=== PATIENT | female | born 1965 | race Caucasian/White ===

== ENCOUNTER 2024-12-11 09:44 | Emergency (ER) | payer MEDICAID ==
[~2024-12-11] VITALS: Ht 175.3 cm; Wt 113.6 kg
[2024-12-11 09:47] VITALS: BP 124/70; PULSE 79; RESP 18; O2SAT 96
--- NOTE | 2024-12-11 10:44 | Physician Documentation ---
HPI ~ General Chief Complaint: Medication Request Stated Complaint: SEE CHIEF COMPLAINT Time Seen by MD: 10:21 History of Present Illness HPI Comments A Depakote refill because they are unable to get a hold of a physician at the current facility. no current reported seizure activity Medication Reconciliation Scheduled Divalproex Sodium (Depakote), 1 TAB PO Q12H Review of Systems All Other Systems at this time: Reviewed and Negative ROS As stated above in the HPI, otherwise all systems are reviewed and negative. Physical Exam Physical Exam Vital Signs: Temperature: 99.1, Source: Oral, Heart Rate: 79, Respiratory Rate: 18, BP: 124/70, Pulse Oximetry: 96, Weight: 113.640 Physical Exam General: Alert, no apparent distress. Respiratory: Lungs clear, no respiratory distress. Cardiovascular: Regular rate and rhythm, no murmurs. Neurologic: Oriented x4. Psychiatric: Normal mood and affect. Skin: Normal color, warm and dry. No edema, no ecchymosis. Progress Results/Orders Results/Orders Vital Signs 12/11/24 12/11/24 09:47 10:57 Temp 99.1 99.1 Pulse 79 Resp 18 B/P (MAP) 124/70 Pulse Ox 96 Medical Decision Making Findings Medicationsrefill as requested Differential Dx:Considerations: Include: Adverse circumstances, Economic, Psychosocial, Medical services unavail., Medication refill, Medication non- compliance, Other Departure Disposition: 01 HOME / SELF CARE / HOMELESS Impression: Primary Impression: General medical exam Discharge Instructions: Medicine Refill at the Emergency Department Referrals: NO PRIMARY CARE PROVIDER (PCP) Prescriptions Divalproex Sodium (Depakote) 250 Mg Tablet. 1 TAB PO Q12H for 30 Days, #60 TAB 0 Refills Prov: MATT MARTE NP 12/11/24 Signature Scribe Signature: t Attestation: The note accurately reflects work and decisions made by me.Matt Marte - ANA 12/11/24 14:41 MATT MARTE NP December 11, 2024 10:44
[2024-12-11] MEDS ORDERED: DIVA250T4 PO (10:46)
[2024-12-11 10:57] VITALS: TEMP 99.1
== END 2024-12-11 11:10 | disposition home or self-care (01) ==
LOC: ER 09:45
DX: R56.9 Unspecified convulsions (principal)
CPT/HCPCS: 99281

== ENCOUNTER 2024-12-16 14:04 | Emergency (ER) | payer MEDICAID ==
[~2024-12-16] VITALS: Ht 177.8 cm; Wt 45.5 kg
[~2024-12-16 14:04] MED LIST: DIVA250T4 PO
[2024-12-16 14:07] VITALS: BP 136/70; PULSE 79; RESP 16; O2SAT 96
--- NOTE | 2024-12-16 14:52 | Physician Documentation ---
HPI ~ General Chief Complaint: Medication Refill Stated Complaint: MED REQUEST Time Seen by MD: 14:39 OK to notify your PCP?: Yes Source: patient Mode of Arrival: POV Exam Limitations: no limitations History of Present Illness HPI Comments 59-year-old female who is here to get prescriptions refilled. Patient lives at a [facility] and states that the provider who feels the prescriptions for that facility recently quit and I currently do not have a provider that can refill the medications. Medication Reconciliation Allergies: Coded Allergies: erythromycin base (Unverified Allergy, Unknown, 12/16/24) quetiapine (Unverified Allergy, Unknown, 12/16/24) Scheduled Acetazolamide (Acetazolamide), 1 TAB PO Q12H Amiloride HCl (Amiloride HCl), 1 TAB PO BID Divalproex Sodium (Depakote), 1 TAB PO Q12H Hydroxyzine Hcl (Atarax), 1 TAB PO qhs Levothyroxine Sodium (Levothyroxine), 1 CAP PO DAILY [place] Carbonate ([place] Carbonate), 1 CAP PO qhs Olanzapine (Olanzapine), 1 TAB PO BID Oxybutynin Chloride (Oxybutynin Chloride), 1 TAB PO Q12H Risperidone (Risperdal), 1 TAB PO HS Tamsulosin Hcl* (Flomax*), 1 CAP PO DAILY Past Medical History Past Medical History: No Pertinent History Review of Systems All Other Systems at this time: Reviewed and Negative Physical Exam Physical Exam Vital Signs: Temperature: 98.0, Source: Temporal, Heart Rate: 79, Respiratory Rate: 16, BP: 136/70, Pulse Oximetry: 96, Weight: 45.500 Oxygen Flow Rate: 0 Physical Exam GENERAL: Alert, no acute distress. HEENT: NCAT, EOMI, PERRL, normal oropharynx, moist oral mucosa. NECK: Supple, trachea midline. CARDIAC: Regular rate and rhythm, no murmurs, rubs, or gallops. RESPIRATORY: Equal breath sounds, clear to auscultation bilaterally, no respiratory distress. MUSCULOSKELETAL: Normal range of motion, nontender, no swelling. Normal gait. NEUROLOGICAL: Awake, alert, and oriented x 3. SKIN: Warm/dry, no pallor, no rash. PSYCH: Alert and appropriate. Affect congruent with mood. Speech is clear. Good eye contact. Progress Results/Orders Results/Orders Vital Signs 12/16/24 12/16/24 14:07 15:16 Temp 98.0 98.0 Pulse 79 Resp 16 B/P (MAP) 136/70 Pulse Ox 96 O2 Flow Rate 0 Medical Decision Making Differential Dx:Considerations: Include: Adverse circumstances, Economic, Psychosocial, Medical services unavail., Medication refill, Medication non- compliance, Other Departure Time of Disposition: 17:45 Disposition: 01 HOME / SELF CARE / HOMELESS Impression: Primary Impression: General medical exam Additional Impression: Medication refill Condition: Stable (ERASED) Discharge Instructions: Medicine Refill at the Emergency Department Additional Instructions: 18 prescriptions requested to be refilled and this was not possible due to the time constraints in the emergency department I refilled the medications that I felt that the patient could not go without and the following medications where not refilled and thus will need to be temporarily discontinued until your provider on staff can fill them: lipitor azelastine docusate fexofenadine fluticasone milk of magnesia multivitamin omeprazole vitamin d Referrals: NO PRIMARY CARE PROVIDER (PCP) Prescriptions Oxybutynin Chloride (Oxybutynin Chloride) 5 Mg Tablet 1 TAB PO Q12H for urinary discomfort for 30 Days, #60 TAB 0 Refills Prov: CLEO KLINESY T PA 12/16/24 Tamsulosin Hcl* (Flomax*) 0.4 Mg Cap.sr.24h 1 CAP PO DAILY for 30 Days, #30 CAP Prov: CLEO KLINESY T PA 12/16/24 Risperidone (Risperdal) 4 Mg Tablet 1 TAB PO HS for 30 Days, #30 TAB 0 Refills Prov: SHANI KLINE T PA 12/16/24 Olanzapine (Olanzapine) 5 Mg Tablet 1 TAB PO BID for 30 Days, #60 TAB 0 Refills Prov: CLEO KLINESY T PA 12/16/24 [place] Carbonate ([place] Carbonate) 600 Mg Capsule 1 CAP PO qhs for 30 Days, #30 CAP 0 Refills Prov: CLEO KLINESY T PA 12/16/24 Levothyroxine Sodium (Levothyroxine) 150 Mcg Capsule 1 CAP PO DAILY for 30 Days, #30 CAP 0 Refills Prov: CLEO KLINESY T PA 12/16/24 Hydroxyzine Hcl (Atarax) 25 Mg Tablet 1 TAB PO qhs for anxiety for 30 Days, #30 TAB 0 Refills Prov: SHANI KLINE 12/16/24 Amiloride HCl (Amiloride HCl) 5 Mg Tablet 1 TAB PO BID for 30 Days, #60 TAB 0 Refills Prov: SHANI KLINE 12/16/24 Acetazolamide (Acetazolamide) 250 Mg Tablet 1 TAB PO Q12H for 30 Days, #60 TAB 0 Refills Prov: SHANI KLINE 12/16/24 Signature Scribe Signature: x Attestation: x SHANI KLINE December 16, 2024 14:52
[2024-12-16] MEDS ORDERED: ACET250T29 PO (15:07)
[2024-12-16] MEDS ORDERED: RISP4TAB7 PO (15:07)
[2024-12-16] MEDS ORDERED: OXYB5TAB21 PO (15:07)
[2024-12-16] MEDS ORDERED: OLAN5TAB75 PO (15:07)
[2024-12-16] MEDS ORDERED: LEVO150C5 PO (15:07)
[2024-12-16] MEDS ORDERED: TAMS-55 PO (15:07)
[2024-12-16] MEDS ORDERED: LITH600C PO (15:07)
[2024-12-16] MEDS ORDERED: HYDR-3686 PO (15:07)
[2024-12-16] MEDS ORDERED: AMIL5TAB8 PO (15:07)
[2024-12-16 15:16] VITALS: TEMP 98
== END 2024-12-16 15:16 | disposition home or self-care (01) ==
LOC: ER 14:05
DX: F41.9 Anxiety disorder, unspecified (principal); Z76.0 Encounter for issue of repeat prescription; Z88.1 Allergy status to other antibiotic agents; Z79.899 Other long term (current) drug therapy
CPT/HCPCS: 99281